=== PATIENT | female | born 1970 | race African-American/Black ===

== ENCOUNTER 2016-09-25 14:42 | Emergency (ER) | payer MEDICAID ==
[~2016-09-25 14:42] MED LIST: ACET650T59 PO; AMLO5TAB2 PO; CIPR500T87 PO; FAMO1TAB25 PO; METO10TA2 PO; ONDA4TAB10 PO; ONDA4TAB13 PO; ONDA4TAB13 SL; OXYC5TAB3 PO; PANT40TA5 PO; POTA20TA14 PO; SUCR1ORA2 PO
[2016-09-28 13:05] LABS: ASPARTATE AMINO TRANSFERASE 12 U/L (15-37); BLOOD UREA NITROGEN 7 mg/dL (7-18); IS PT STATUS REG ER OR PRE ER? YES
[2016-09-28 17:01] LABS: ANISOCYTOSIS 1+; MICROCYTOSIS 1+; POIKILOCYTOSIS 1+
== END 2016-09-25 19:00 | disposition home or self-care (01) ==
LOC: ED 14:42
DX: K21.0 Gastro-esophageal reflux disease with esophagitis (principal); K44.9 Diaphragmatic hernia without obstruction or gangrene
CPT/HCPCS: 36415; 74022; 80053; 81003; 83690; 84484; 85025; 85610; 85730; 87086; 93005

== ENCOUNTER 2016-09-26 14:14 | Emergency (ER) | payer MEDICAID ==
[~2016-09-26] VITALS: Ht 152.4 cm; Wt 56.1 kg
[2016-09-26] MEDS ORDERED: SODIUM CHLORIDE 0.9% 1,000 ML IV ONE (15:11)
[2016-09-26] MEDS ORDERED: ONDANSETRON 2MG/ML, 2ML IVPush ONE (15:30)
[2016-09-26] MEDS ORDERED: SODIUM CHLORIDE FLUSH 10ML SYR IVF ONE (15:30)
[2016-09-26] MEDS ORDERED: SODIUM CHLORIDE 0.9% 1,000ML IVBOLUS ONE (15:30)
[2016-09-26] MEDS ORDERED: HYDROmorphone 1 MG/ML, 1ML IVPush PRN (15:30)
[2016-09-26] MEDS ORDERED: ONDANSETRON 2MG/ML, 2ML ONE (15:39)
[2016-09-26] MEDS ORDERED: HYDROmorphone 1 MG/ML, 1ML ONE (15:39)
[2016-09-26 15:53] LABS: ASPARTATE AMINO TRANSFERASE 15 U/L (15-37); BLOOD UREA NITROGEN 7 mg/dL (7-18)
[2016-09-26] MEDS ORDERED: HALOPERIDOL 5 MG/ML ONE (16:30)
[2016-09-26] MEDS ORDERED: HALOPERIDOL 5 MG/ML IV ONE (16:30)
[2016-09-26 17:43] LABS: ANISOCYTOSIS 1+; HYPOCHROMIA 1+; MICROCYTOSIS 1+; OVALOCYTES 1+
[2016-09-26 18:35] VITALS: BP 140/88
== END 2016-09-26 18:40 | disposition home or self-care (01) ==
LOC: ED 17:09
DX: K31.84 Gastroparesis (principal); K21.9 Gastro-esophageal reflux disease without esophagitis; E86.0 Dehydration; R11.2 Nausea with vomiting, unspecified; G43.A1 Cyclical vomiting, in migraine, intractable
CPT/HCPCS: 36415; 74022; 80053; 81001; 84484; 85025; 96361; 96374; 96375; 99285; J1170; J1630; J2405; J7030

== ENCOUNTER 2016-10-05 09:24 | Emergency (ER) | payer MEDICAID ==
[~2016-10-05] VITALS: Ht 152.4 cm; Wt 54.0 kg
[2016-10-05] MEDS ORDERED: CYCL5TAB PO (09:41)
[2016-10-05] MEDS ORDERED: MORPHINE SULFATE 4 MG/ML, 1ML ONE ×2 (09:44→10:25)
[2016-10-05] MEDS ORDERED: PROMETHAZINE 25 MG/ML, 1ML ONE (09:44)
[2016-10-05] MEDS ORDERED: SODIUM CHLORIDE FLUSH 10ML SYR IVF ONE (10:00)
[2016-10-05] MEDS ORDERED: PROMETHAZINE 25 MG/ML, 1ML IM ONE (10:00)
[2016-10-05] MEDS ORDERED: SODIUM CHLORIDE 0.9% 1,000ML IVBOLUS ONE (10:00)
[2016-10-05] MEDS: MORPHINE SULFATE 4 MG/ML, 1ML IVPush PRN ×2 (10:00→10:26)
[2016-10-05 10:35] LABS: BLOOD UREA NITROGEN 13 mg/dL (7-18)
[2016-10-05 10:39] LABS: ASPARTATE AMINO TRANSFERASE 17 U/L (15-37)
[2016-10-05 12:05] VITALS: BP 138/90
== END 2016-10-05 12:08 | disposition home or self-care (01) ==
LOC: ED 10:08
DX: M54.5 Low back pain (principal); M54.6 Pain in thoracic spine; G89.29 Other chronic pain; K31.84 Gastroparesis; I10 Essential (primary) hypertension; K21.9 Gastro-esophageal reflux disease without esophagitis; J45.909 Unspecified asthma, uncomplicated
CPT/HCPCS: 36415; 72072; 72110; 80053; 81003; 83690; 85025; 85610; 93005; 96361; 96372; 96374; 99285; J2550; J7030

== ENCOUNTER 2016-10-10 14:08 | Emergency (ER) | payer MEDICAID ==
[~2016-10-10] VITALS: Ht 152.4 cm; Wt 54.2 kg
[~2016-10-10 14:08] MED LIST changes: +CYCL5TAB PO
[2016-10-10] MEDS ORDERED: ONDANSETRON 2MG/ML, 2ML IVPush ONE (15:30)
[2016-10-10] MEDS ORDERED: ASPIRIN 81 MG TABLET CHEW PO ONE (15:30)
[2016-10-10] MEDS ORDERED: SODIUM CHLORIDE FLUSH 10ML SYR IVF ONE (15:30)
[2016-10-10] MEDS ORDERED: SODIUM CHLORIDE 0.9% 1,000ML IVBOLUS ONE ×2 (15:30→17:00)
[2016-10-10 16:08] LABS: ASPARTATE AMINO TRANSFERASE 8 U/L (15-37); BLOOD UREA NITROGEN 7 mg/dL (7-18)
[2016-10-10 16:13] LABS: IS PT STATUS REG ER OR PRE ER? YES
[2016-10-10] MEDS ORDERED: ONDANSETRON 2MG/ML, 2ML ONE (16:14)
[2016-10-10] MEDS ORDERED: ASPIRIN 81 MG TABLET CHEW ONE (16:14)
[2016-10-10] MEDS ORDERED: MORPHINE SULFATE 4 MG/ML, 1ML ONE (16:14)
[2016-10-10] MEDS: MORPHINE SULFATE 4 MG/ML, 1ML IVPush PRN ×2 (16:15→17:53)
[2016-10-10 16:31] LABS: DIFF TOTAL CELLS COUNTED 100 CELL DIFF
[2016-10-10 16:41] LABS: VERIFY COUNTS? YES
[2016-10-10 16:44] LABS: ANISOCYTOSIS 1+; HYPOCHROMIA 1+; MICROCYTOSIS 1+; OVALOCYTES 1+
[2016-10-10] MEDS ORDERED: PIPERACILLIN/TAZO/PMX 3.375GM 50 ML IV ONE (17:00)
[2016-10-10] MEDS ORDERED: OMNIPAQUE 350 MG/ML, 100ML BOTTLE ONE (17:35)
[2016-10-10] MEDS ORDERED: KETO10TA PO (17:58)
[2016-10-10 20:10] VITALS: BP 147/104
== END 2016-10-10 20:27 | disposition home or self-care (01) ==
LOC: ED 17:40
DX: R07.89 Other chest pain (principal); R10.84 Generalized abdominal pain; E86.0 Dehydration; E87.6 Hypokalemia; I10 Essential (primary) hypertension; J45.909 Unspecified asthma, uncomplicated; K44.9 Diaphragmatic hernia without obstruction or gangrene; Z90.49 Acquired absence of other specified parts of digestive tract
CPT/HCPCS: 36415; 71010; 71275; 74241; 80053; 81003; 83605; 83690; 84145; 84484; 85025; 85379; 85610; 85730; 87040; 93005; 96361; 96365; 96375; 96376; 99285; J2405; J2543; J7030; Q9967